=== PATIENT | male | born 1950 | race Caucasian/White ===

== ENCOUNTER 2021-05-12 09:32 | Outpatient (CLI) | payer MEDICARE, SELFPAY ==
--- NOTE | ~2021-05-12 | XR_ITS ---
XR lumbar spine 2-3V DATE: 05/12/2021 10:11 INDICATION: Back pain TECHNIQUE: AP, lateral, coned lateral lumbosacral views COMPARISON: None FINDINGS: There is degenerative spurring throughout the lower thoracic and lumbar spine. The L1-2 and L5-S1 interspace heights are moderately compromised. No fracture or bone destruction or spondylolisthesis. The included lower thoracic and lumbar pedicles are intact. The sacroiliac joints are intact. There is extensive calcification of the abdominal aorta and common iliac and internal or external [place] ac arteries as no abdominal aortic aneurysm is evident. IMPRESSION: Degenerative spurring of the lower thoracic and lumbar spine, moderately prominent loss o f interspace height at L1-2 and L5-S1 Reviewed, dictated and finalized at location B. IMPRESSION: Degenerative spurring of the lower thoracic and lumbar spine, moder ately prominent loss of interspace height at L1-2 and L5-S1
== END 2021-05-12 09:33 | disposition home or self-care (01) ==
LOC: CHSIMG 09:36
PROVIDERS: PCP Family Medicine; Visit Provider Family Medicine
DX: M54.9 Dorsalgia, unspecified (principal); I73.9 Peripheral vascular disease, unspecified
CPT/HCPCS: 72100

== ENCOUNTER 2024-05-19 12:35 | Outpatient (CLI) | payer OTHER, SELFPAY ==
[2024-05-19 13:39] LABS: Add Urine Microscopic? YES; Appearance Urine Clear (Clear); Bacteria Urine None Seen /hpf; Bilirubin Urine Negative (Negative); Blood Urine Negative (Negative); Color Urine Yellow (Yellow); Glucose Urine UA Negative (Negative); Ketones Urine Trace mg/dL (Negative); Leukocyte Esterase Ur Negative LEU/UL (Negative); Need Manual Microscopic Reviewed; Nitrate Urine Negative (Negative); Protein Urine 3+ mg/dL (Negative); Specific Grav Ur 1.021 (1.001-1.035); Squamous Epithelial Cell Urine None Seen /hpf (Few); Urobilinogen Urine 0.2 mg/dL (<2.0)
== END 2024-05-19 12:36 | disposition home or self-care (01) ==
LOC: ANHLAB 12:37
PROVIDERS: Radiology Radiation Oncology; Visit Provider Internal Medicine Hematology & Oncology
DX: R30.0 Dysuria (principal)
CPT/HCPCS: 81001

== ENCOUNTER 2024-07-18 08:38 | Outpatient (CLI) | payer MEDICARE, SELFPAY ==
[2024-07-18 12:18] LABS: Prostate Specific Antigen 0.1 ng/mL (< OR = 4.0)
== END 2024-07-18 08:39 | disposition home or self-care (01) ==
PROVIDERS: Visit Provider Radiology Radiation Oncology
DX: C61 Malignant neoplasm of prostate (principal)
CPT/HCPCS: 36415; 84153